=== PATIENT | female | born 1990 | race Caucasian/White ===

== ENCOUNTER 2021-12-31 00:46 | Emergency (ER) | payer OTHER ==
[~2021-12-31] VITALS: Ht 167.6 cm; Wt 136.1 kg
[~2021-12-31 00:46] MED LIST: CEPH500 PO; RXSULTRIDS PO; SULTRIDS PO
[2021-12-31] MEDS ORDERED: IBUP600 PO (01:21)
[2021-12-31] MEDS ORDERED: PSEUDOEPHEDRINE30 M1 PO (01:21)
== END 2021-12-31 21:26 | disposition home or self-care (01) ==
LOC: ER 00:46
DX: H93.8X1 Other specified disorders of right ear (principal); Z79.899 Other long term (current) drug therapy
CPT/HCPCS: 99282; A9270

== ENCOUNTER 2021-12-31 15:58 | Emergency (ER) | payer OTHER ==
[~2021-12-31] VITALS: Ht 160 cm; Wt 129.3 kg
[~2021-12-31 15:58] MED LIST changes: +IBUP600 PO; +PSEUDOEPHEDRINE30 M1 PO
== END 2021-12-31 16:13 | disposition home or self-care (01) ==
LOC: ER 15:58
DX: H93.8X1 Other specified disorders of right ear (principal); Z79.899 Other long term (current) drug therapy
CPT/HCPCS: 99282

== ENCOUNTER 2022-04-07 19:42 | Emergency (ER) | payer OTHER ==
[~2022-04-07] VITALS: Ht 162.6 cm; Wt 127.0 kg
[2022-04-07] MEDS ORDERED: CEPH500 PO (20:10)
[2022-04-07] MEDS ORDERED: SULTRIDS PO (20:10)
== END 2022-04-07 20:40 | disposition home or self-care (01) ==
LOC: ER 19:42
DX: L02.214 Cutaneous abscess of groin (principal); Z79.899 Other long term (current) drug therapy; Z72.0 Tobacco use
CPT/HCPCS: A9270

== ENCOUNTER 2023-01-30 22:03 | Emergency (ER) | payer OTHER ==
[~2023-01-30] VITALS: Ht 160 cm; Wt 130.6 kg
[2023-01-30 23:46] LABS: BASOPHILS ABSOLUTE AUTO 0.04 K/mm3 (0.00-0.23); BASOPHILS PERCENT AUTO 1 % (0-2); EOSINOPHILS ABSOLUTE AUTO 0.07 K/mm3 (0.00-0.68); EOSINOPHILS PERCENT AUTO 1 % (0-6); Hematocrit 38.6 % (33.0-51.0); Hemoglobin 12.2 g/dL (11.5-16.0); IMMATURE GRAN ABSOLUTE AUTO 0.02 K/mm3 (0.00-0.10); IMMATURE GRAN PERCENT AUTO 0 % (0-1); LYMPHOCYTES ABSOLUTE AUTO 2.06 K/mm3 (0.84-5.20); LYMPHOCYTES PERCENT AUTO 31 % (21-46); MONOCYTES ABSOLUTE AUTO 0.43 K/mm3 (0.16-1.47); MONOCYTES PERCENT AUTO 7 % (4-13); Mean Corpuscular HGB 24.5 pg (26.0-34.0); Mean Corpuscular HGB Conc 31.6 g/dL (31.5-36.5); Mean Corpuscular Volume 78 fL (80-100); NEUTROPHILS PERCENT AUTO 60 % (41-73); Platelet Count 256 K/mm3 (150-400); RDW Coefficient Variation 15.4 % (11.7-14.2); RDW Standard Deviation 43.1 fL (35.1-46.3); Red Blood Cell Count 4.97 M/mm3 (3.80-5.20); White Blood Cell Count 6.62 K/mm3 (4.00-11.30)
[2023-01-30 23:47] LABS: Source, Urine Clean Catch
[2023-01-30 23:49] LABS: Bilirubin, Urine Neg (Neg); Blood, Urine 5+ (Neg); Glucose Qualitative, Urine Neg (Neg); Ketones, Urine Neg (Neg); Leukocyte Esterase, Urine 1+ (Neg); Nitrite, Urine Neg (Neg); Protein, Urine 1+ (Neg); Specific Gravity, Urine 1.015 (1.003-1.022); Urobilinogen, Urine 2+ (Normal)
[2023-01-30 23:55] LABS: Appearance, Urine Hazy (Clear); Color, Urine Yellow (P-Yellow)
[2023-01-30 23:57] LABS: Red Blood Cells, Urine 0-2 /hpf (0-2); White Blood Cells, Urine 0-2 /hpf (0-5)
[2023-01-30 23:58] LABS: Amorphous Light (0-Heavy); Bacteria Few /hpf; Squamous Epithelial Cells Few /hpf (Few); Yeast/Fungi Urine Few /hpf
[2023-01-31 00:03] LABS: Albumin, Blood 3.4 g/dL (3.4-5.0); Albumin/Globulin Ratio 0.8 (0.8-1.8); Bilirubin, Total 0.2 mg/dL (0.1-1.0); Bun/Creatinine Ratio 15.5 (12.0-20.0); Calcium, Blood 8.6 mg/dL (8.5-10.1); Creatinine, Blood 0.71 mg/dL (0.40-1.00); Potassium, Blood 3.8 mmol/L (3.5-5.5); Total Protein, Blood 7.4 g/dL (6.4-8.2)
[2023-01-31 00:08] LABS: Influenza A, PCR NEGATIVE (NEGATIVE); Influenza B, PCR NEGATIVE (NEGATIVE); Resp Syncytial Virus, PCR NEGATIVE (NEGATIVE); SARS-Cov-2 (COVID-19) PCR, MMC NEGATIVE (NEGATIVE)
[2023-01-31] MEDS ORDERED: DICY20 PO (00:27)
[2023-01-31] MEDS ORDERED: Ondansetron Odt8 MG MM (00:27)
== END 2023-01-31 01:50 | disposition home or self-care (01) ==
LOC: ER 22:03
PROVIDERS: Emergency Medicine
DX: R19.7 Diarrhea, unspecified (principal); R11.2 Nausea with vomiting, unspecified; F17.210 Nicotine dependence, cigarettes, uncomplicated; Z20.822 Contact with and (suspected) exposure to COVID-19
CPT/HCPCS: 0241U; 36415; 80053; 81001; 83605; 85025; 87086; 93005; 93010; 96361; 96372-59; 96374; 96375; 99284-25; J0500; J1885; J2405; J7030

== ENCOUNTER 2023-02-28 20:34 | Emergency (ER) | payer OTHER ==
[~2023-02-28] VITALS: Ht 160 cm; Wt 130.6 kg
[~2023-02-28 20:34] MED LIST changes: +DICY20 PO; +Ondansetron Odt8 MG MM
[2023-02-28 20:45] VITALS: BP 145/91
[2023-02-28] MEDS ORDERED: AMOCLA875 PO (22:01)
== END 2023-02-28 22:07 | disposition home or self-care (01) ==
LOC: ER 20:34
DX: J02.0 Streptococcal pharyngitis (principal); F17.200 Nicotine dependence, unspecified, uncomplicated; Z79.899 Other long term (current) drug therapy
CPT/HCPCS: 87081; 87147; 87430; 96372; 99283; A9270; J1100; J1885

== ENCOUNTER 2023-03-01 22:03 | Emergency (ER) | payer OTHER ==
[~2023-03-01] VITALS: Ht 160 cm; Wt 130.6 kg
[~2023-03-01 22:03] MED LIST changes: +AMOCLA875 PO
[2023-03-01 22:13] VITALS: BP 152/109
== END 2023-03-01 23:11 | disposition home or self-care (01) ==
LOC: ER 22:03
DX: S00.12XA Contusion of left eyelid and periocular area, initial encounter (principal); X58.XXXA Exposure to other specified factors, initial encounter; F17.200 Nicotine dependence, unspecified, uncomplicated; Z79.899 Other long term (current) drug therapy
CPT/HCPCS: 99282